=== PATIENT | male | born 1980 | race Caucasian/White ===

== ENCOUNTER 2022-02-05 14:48 | Observation (INO) | payer SELFPAY ==
[~2022-02-05] VITALS: Ht 175.3 cm; Wt 83.9 kg
[2022-02-05 15:41] LABS: BASOPHILS ABSOLUTE AUTO 0.04 K/mm3 (0.00-0.23); BASOPHILS PERCENT AUTO 0 % (0-2); EOSINOPHILS ABSOLUTE AUTO 0.04 K/mm3 (0.00-0.68); EOSINOPHILS PERCENT AUTO 0 % (0-6); Hematocrit 41.9 % (37.0-53.0); Hemoglobin 14.2 g/dL (13.5-17.5); IMMATURE GRAN ABSOLUTE AUTO 0.05 K/mm3 (0.00-0.10); IMMATURE GRAN PERCENT AUTO 0 % (0-1); LYMPHOCYTES ABSOLUTE AUTO 1.92 K/mm3 (0.84-5.20); LYMPHOCYTES PERCENT AUTO 14 % (21-46); MONOCYTES ABSOLUTE AUTO 0.93 K/mm3 (0.16-1.47); MONOCYTES PERCENT AUTO 7 % (4-13); Mean Corpuscular HGB 29.5 pg (26.0-34.0); Mean Corpuscular HGB Conc 33.9 g/dL (31.5-36.5); Mean Corpuscular Volume 87 fL (80-100); Mean Platelet Volume 9.7 fL (9.1-12.4); NEUTROPHILS ABSOLUTE AUTO 10.96 K/mm3 (1.96-9.15); NEUTROPHILS PERCENT AUTO 79 % (41-73); Platelet Count 225 K/mm3 (150-400); RDW Coefficient Variation 13.5 % (11.7-14.2); RDW Standard Deviation 42.5 fL (35.1-46.3); Red Blood Cell Count 4.82 M/mm3 (4.30-5.90); White Blood Cell Count 13.94 K/mm3 (4.00-11.30)
[2022-02-05 16:05] LABS: Albumin/Globulin Ratio 1.1 (0.8-1.8); Bilirubin, Total 0.6 mg/dL (0.1-1.0); Bun/Creatinine Ratio 10.7 (12.0-20.0); Calcium, Blood 8.8 mg/dL (8.5-10.1); Creatinine, Blood 0.84 mg/dL (0.60-1.20); Globulin, Blood 3.8 g/dL (2.2-4.0); Potassium, Blood 4.1 mmol/L (3.5-5.5); Total Protein, Blood 7.8 g/dL (6.4-8.2)
[2022-02-05 17:29] LABS: Source, Urine Clean Catch
[2022-02-05 17:39] LABS: Appearance, Urine Clear (Clear); Bilirubin, Urine Neg (Neg); Blood, Urine 2+ (Neg); Color, Urine Yellow (P-Yellow); Glucose Qualitative, Urine Neg (Neg); Ketones, Urine 2+ (Neg); Leukocyte Esterase, Urine 1+ (Neg); Nitrite, Urine Neg (Neg); Protein, Urine 1+ (Neg); Specific Gravity, Urine 1.015 (1.003-1.022); Urobilinogen, Urine NORM (Normal); pH, Urine 6.5 (5.0-8.0)
[2022-02-05 18:24] LABS: White Blood Cells, Urine 0-2 /hpf (0-5)
[2022-02-05 18:25] LABS: Bacteria Few /hpf
[2022-02-05 18:26] LABS: Mucus Light (0-Heavy); Squamous Epithelial Cells Rare /hpf (Few)
[2022-02-05 18:58] LABS: Influenza A, PCR NEGATIVE (NEGATIVE); Influenza B, PCR NEGATIVE (NEGATIVE); Resp Syncytial Virus, PCR NEGATIVE (NEGATIVE); SARS-Cov-2 (COVID-19) PCR, MMC NEGATIVE (NEGATIVE)
--- NOTE | 2022-02-05 18:59 | NUR ---
ADMIT NOTE PATIENT NEW ADMIT TO UNIT FROM ER AT 1825. ALERT AND ORIENTED. INDEPENDENT IN ROOM. RATES RLQ PAIN 2/10, DENIES NAUSEA. RESTING IN BED AT THIS TIME. CALL LIGHT WITHIN REACH. NPO. REPORT GIVEN TO SKELP PROCESSOR RN.
[2022-02-06 04:36] LABS: BASOPHILS ABSOLUTE AUTO 0.03 K/mm3 (0.00-0.23); BASOPHILS PERCENT AUTO 0 % (0-2); EOSINOPHILS ABSOLUTE AUTO 0.01 K/mm3 (0.00-0.68); EOSINOPHILS PERCENT AUTO 0 % (0-6); Hematocrit 36.4 % (37.0-53.0); Hemoglobin 12.7 g/dL (13.5-17.5); IMMATURE GRAN ABSOLUTE AUTO 0.06 K/mm3 (0.00-0.10); IMMATURE GRAN PERCENT AUTO 0 % (0-1); LYMPHOCYTES ABSOLUTE AUTO 2.08 K/mm3 (0.84-5.20); LYMPHOCYTES PERCENT AUTO 15 % (21-46); MONOCYTES PERCENT AUTO 7 % (4-13); Mean Corpuscular HGB 30.4 pg (26.0-34.0); Mean Corpuscular HGB Conc 34.9 g/dL (31.5-36.5); Mean Corpuscular Volume 87 fL (80-100); Mean Platelet Volume 9.8 fL (9.1-12.4); NEUTROPHILS PERCENT AUTO 77 % (41-73); Platelet Count 183 K/mm3 (150-400); RDW Coefficient Variation 13.8 % (11.7-14.2); RDW Standard Deviation 43.2 fL (35.1-46.3); Red Blood Cell Count 4.18 M/mm3 (4.30-5.90); White Blood Cell Count 13.78 K/mm3 (4.00-11.30)
--- NOTE | 2022-02-06 05:05 | NUR ---
SHIFT SUMMARY: A&OX4. C/O RLQ PAIN T/O THE SHIFT THAT WAS WELL MANAGED PER EMAR ORDERS AND UNINTERRUPTED REST. INDEPENDENT IN ROOM. NPO EXCEPT SIPS AND ICE CHIPS PER ORDER. VOIDING. CALL LIGHT IN REACH AND PT RESTING AT THIS TIME.
[2022-02-06 05:27] LABS: Bun/Creatinine Ratio 9.2 (12.0-20.0); Calcium, Blood 8.7 mg/dL (8.5-10.1); Creatinine, Blood 0.77 mg/dL (0.60-1.20); Potassium, Blood 3.9 mmol/L (3.5-5.5)
--- NOTE | 2022-02-06 08:54 | NUR ---
History, Chart, Medications and Allergies reviewed before start of procedure. Patient confirms NPO status and agrees with scheduled surgery.
--- NOTE | 2022-02-06 09:33 | NUR ---
02/06/22 0933 Noni Salas PT. IS ON SCHEDULED ABX
--- NOTE | 2022-02-06 11:31 | NUR ---
RETURN FROM PACU PATIENT RETURNED TO ROOM FROM PACU POD 0 LAP APPY. ALERT AND ORIENTED. ABD SOFT, TENDER WITH LAP SITES X3 WITH DERMABOND C/D/I AND FARHANA. TOLERATING SIPS OF WATER. VSS. 2L O2 VIA NC. LS CLEAR. ABLE TO STAND WITH SBA TO TRANSFER FROM [place] TO BED.
--- NOTE | 2022-02-06 19:12 | NUR ---
SHIFT SUMMARY PATIENT ALERT AND ORIENTED. POD [address] ARELLANO. LAP SITES X3 C/D/I. RATES PAIN 1-4/10, CONTROLLED WITH PO PAIN MEDS. INDEPENDENT IN ROOM. VOIDING WELL. IV ABX Q6. PLAN TO DISCHARGE HOME IN AM.
--- NOTE | 2022-02-07 07:36 | NUR ---
CORE MAN SUMMARY PT IS POST OP DAY 1 FROM LAPAROSCOPIC APPENDECTOMY. HE IS ALERT AND ORIENTED. INDEPENDENT IN THE ROOM. PLEASANT AND COOPERATIVE. PAIN MANAGED WELL WITH 5 MG ORAL OXYCODONE X2. PT REPORTS THAT HE IS PASSING GAS BUT NO BM YET. HE WAS GIVEN TWO DOSES OF IV ZOSYN. LAP SITES SEALED WITH SKIN ADHESIVE AND APPEAR C/D/I WITHOUT INFECTION. PT STATES HE IS READY TO GO HOME.
[2022-02-07] MEDS ORDERED: AMOCLA875 PO (11:12)
[2022-02-07] MEDS ORDERED: OXYC5 PO (11:12)
--- NOTE | 2022-02-07 12:21 | NUR ---
DISCHARGE PT PROVIDED WITH WRITTEN AND VERBAL DISCHARGE INSTRUCTIONS, HE REPORTED UNDERSTANDING. PT MEETING ALL GOALS A TIME OF DISCHARGE. PAIN MANAGED, TOLERATING PO, VSS, PASSING FLATUS AND ABLE TO AMBULATE. PT ESCORTED OUT IN A W/C AT APPROXIMATELY 1205.
== END 2022-02-07 12:09 | disposition home or self-care (01) ==
LOC: ER 14:48 → SURS 14:49
PROVIDERS: Physician Assistant; Student in an Organized Health Care Education/Training Program; ADMIT Surgery
PROC: 0DTJ4ZZ Resection of Appendix, Percutaneous Endoscopic Approach (ICD-10-PCS; principal; 2022-02-06 09:30)
DX: K35.33 Acute appendicitis with perforation, localized peritonitis, and gangrene, with abscess (principal)
CPT/HCPCS: 0241U; 36415; 74177; 80048; 80053; 81001; 83690; 85025; 87086; 88304; 96365-59; 96366; 96375; 96376; 99285-25; A9270; G0378; J0330; J1100; J1170; J1885; J2405; J2543; J2704; J2795; J3010; J7030; J7120; Q9967